=== PATIENT | male | born 1975 | race Caucasian/White ===

== ENCOUNTER 2023-09-18 12:24 | Emergency (ER) | payer MEDICARE, MEDICAID ==
[2023-09-18 12:45] VITALS: BP 149/100; O2SAT 98
--- NOTE | 2023-09-18 13:07 | ED Physician Documentation ---
History of Present Illness - Stated complaint Stated Complaint: FIT - Chief complaint Chief Complaint: General - History obtained from History obtained from: Patient - History of Present Illness Timing: Prior to arrival Quality: Patient arrested by [place] for reported aggressive assaultive behavior and seemed intoxicated. Pt requested coming to ED but would not specify why. Here for evaluation at pt request. Officers state they did not have suspicion of injury nor problem. Associated symptoms: Patient staes his wrists are sore with the handcuffs when he moves hands around. Denies other problems. When asked what he need medical attention for, he said that he wished me to get him out of being arrested. No specific medical complaint. Review of Systems Cardiac: denies: Chest pain / pressure Respiratory: denies: Dyspnea GI: denies: Abdominal Pain Neurologic: denies: Headache, Head injury PD PAST MEDICAL HISTORY - Past Medical History Cardiovascular: None Respiratory: None Endocrine/Autoimmune: None GI: Ulcers : Retention HEENT: None Psych: Anxiety Musculoskeletal: None Derm: None - Past Surgical History Past Surgical History: Yes Ortho: Knee replacement - Present Medications Home Medications: Ambulatory Orders Medication Instructions Recorded Confirmed Home Medications Unobtainable 09/18/23 09/18/23 [HOME MEDICATIONS UNOBTAINABLE] - Allergies Allergies/Adverse Reactions: Allergies Allergy/AdvReac Type Severity Reaction Status Date / Time No Known Drug Allergies Allergy Verified 09/18/23 12:26 - Social History Does the pt smoke?: No Smoking Status: Never smoker Does the pt drink ETOH?: No Does the pt have substance abuse?: No - Immunizations Immunizations are current?: No Immunizations: TDAP >10years/unknown - POLST Patient has POLST: No PD ED PE NORMAL - Vitals Vital signs reviewed: Yes - General General: Other (odor of alcohol on breath He does have some emotional lability that could be consistent with intoxication. He yells at times when I tell him it is not in my purview to intercede in his arrest or not. I can assess for medical conditions and if present, determine if hospital is needed rather than [facility]) - HEENT HEENT: Atraumatic - Neck Neck: Supple, no meningeal sign, No bony TTP, No adenopathy - Cardiac Cardiac: No murmur. No: RRR (regular but mildly tachycardic. ) - Respiratory Respiratory: No respiratory distress, Clear bilaterally - Derm Derm: Normal color, Warm and dry - Extremities Extremities: Other (wrists are cuffed but no redness nor abrasions noted and they seem to have room for movement of the wrists, so not appearing too tight. Color and cap refill, sesnation are normal in fingers. ) - Neuro Neuro: Alert and oriented X 3, No motor deficit, No sensory deficit, Normal speech Results - Vitals Vitals: Oxygen O2 Source Room air PD Medical Decision Making - ED course Complexity details: considered differential (he states he does not have medical complaint other than wrists hurting with the cuffs as he moves arms around. Otherwise his goal is asking me to get him out of being arrested. ), d/w patient Departure - Departure Disposition: 01 Home, Self Care Clinical Impression: Anxiety, Alcohol intoxication Condition: Stable Record reviewed to determine appropriate education?: Yes Forms: PCP List Discharge Date/Time: 09/18/23 13:28
== END 2023-09-18 13:28 | disposition home or self-care (01) ==
LOC: ED 12:24
DX: F41.9 Anxiety disorder, unspecified (principal); F10.929 Alcohol use, unspecified with intoxication, unspecified
CPT/HCPCS: 99281; 99283

== ENCOUNTER 2023-10-27 07:05 | Outpatient (CLI) | payer MEDICARE, MEDICAID | END 2023-10-27 07:06 | disposition critical access hospital (66) | LOC: EMS 07:05 | DX: S01.112A Laceration without foreign body of left eyelid and periocular area, initial encounter (principal); X58.XXXA Exposure to other specified factors, initial encounter; R41.0 Disorientation, unspecified; R45.1 Restlessness and agitation | CPT/HCPCS: A0425; A0429 ==

== ENCOUNTER 2023-10-27 07:21 | Emergency (ER) | payer MEDICARE, MEDICAID ==
--- NOTE | 2023-10-27 07:28 | ED Physician Documentation ---
History of Present Illness - Stated complaint Stated Complaint: FACIAL LAC/INJ - History obtained from History obtained from: Patient, EMS - Additonal information Additional information: 48-year-old gentleman presents by ambulance for head injury with possibly altered mental status. The mechanism of injury is unknown. He was found next to the couch with significant blood on the ground with evidence of left facial trauma. Patient does not recall falling or know why he fell. He is somewhat altered and acting strange. He denies any intoxicants. PD PAST MEDICAL HISTORY - Present Medications Home Medications: Ambulatory Orders Medication Instructions Recorded Confirmed Ibuprofen 200 mg PO DAILY 10/27/23 10/27/23 - Allergies Allergies/Adverse Reactions: Allergies Allergy/AdvReac Type Severity Reaction Status Date / Time No Known Drug Allergies Allergy Unverified 10/27/23 07:31 PD ED PE NORMAL - Vitals Vital signs reviewed: Yes - General General: Other (He is alert and oriented to person and place but not time or events) - HEENT HEENT: PERRL, EOMI (Without obvious nystagmus), Other (Dried blood left forehead and hematoma left infraorbital area. No evidence of entrapment. There is a 1 cm shallow laceration of the left upper eyelid) - Neck Neck: Supple, no meningeal sign, No bony TTP (But will CT given altered mental status and unknown mechanism of injury) - Cardiac Cardiac: RRR, No murmur - Respiratory Respiratory: No respiratory distress, Clear bilaterally - Abdomen Abdomen: Non tender - Neuro Neuro: primer inspector 2-12 intact Eye Opening: Spontaneous Motor: Obeys Commands Verbal: Confused GCS Score: 14 - Psych Psych: Normal mood, Normal affect Results - Vitals Vitals: Vital Signs - 24 hr 10/27/23 10/27/23 10/27/23 07:28 08:02 08:30 Temperature 36.6 C Heart Rate 115 H 94 97 Respiratory 18 19 19 Rate Blood Pressure 153/105 H 152/97 H 156/92 H O2 Saturation 99 100 98 10/27/23 09:00 Temperature Heart Rate 99 Respiratory 16 Rate Blood Pressure 158/90 H O2 Saturation 97 Oxygen O2 Source Room air - Labs Labs: Laboratory Tests 10/27/23 10/27/23 10/27/23 07:25 07:25 07:25 WBC 8.6 RBC 4.44 L Hgb 13.6 L Hct 40.9 L MCV 92.1 MCH 30.6 MCHC 33.3 RDW 15.4 H Plt Count 242 MPV 10.7 Neut # (Auto) 5.5 Lymph # (Auto) 2.1 [place] # (Auto) 0.9 Eos # (Auto) 0.0 Baso # (Auto) 0.1 Absolute Nucleated RBC 0.00 Nucleated RBC % 0.0 PT 12.6 INR 1.2 Sodium 136 Potassium 3.7 Chloride 98 L Carbon Dioxide 27 Anion Gap 11.0 BUN 15 Creatinine 1.0 Estimated GFR (MDRD) 79 L Glucose 137 H Calcium 9.7 Total Bilirubin 1.1 H AST 29 ALT 20 Alkaline Phosphatase 85 Total Protein 7.5 Albumin 4.7 Globulin 2.8 Albumin/Globulin Ratio 1.7 Lipase 56 Urine Color Urine Clarity Urine pH Ur Specific [place] Urine Protein Urine Glucose (UA) Urine Ketones Urine Occult Blood Urine Nitrite Urine Bilirubin Urine Urobilinogen Ur Leukocyte Esterase Ur Microscopic Review Urine Culture Comments Urine Opiates Screen Ur Buprenorphine Scrn Ur Oxycodone Screen Urine Methadone Screen Ur Barbiturates Screen Ur Tricyclics Screen Ur Phencyclidine Scrn Ur Amphetamine Screen U Methamphetamines Scrn U Benzodiazepines Scrn Urine Cocaine Screen U Cannabinoids Screen Ur Drug Screen Comment Ethyl Alcohol < 10.0 10/27/23 08:13 WBC RBC Hgb Hct MCV MCH MCHC RDW Plt Count MPV Neut # (Auto) Lymph # (Auto) [place] # (Auto) Eos # (Auto) Baso # (Auto) Absolute Nucleated RBC Nucleated RBC % PT INR Sodium Potassium Chloride Carbon Dioxide Anion Gap BUN Creatinine Estimated GFR (MDRD) Glucose Calcium Total Bilirubin AST ALT Alkaline Phosphatase Total Protein Albumin Globulin Albumin/Globulin Ratio Lipase Urine Color DARK YELLOW Urine Clarity CLEAR Urine pH 7.0 Ur Specific [place] 1.020 Urine Protein TRACE Urine Glucose (UA) NEGATIVE Urine Ketones 15 H Urine Occult Blood NEGATIVE Urine Nitrite NEGATIVE Urine Bilirubin NEGATIVE Urine Urobilinogen 0.2 (NORMAL) Ur Leukocyte Esterase NEGATIVE Ur Microscopic Review NOT INDICATED Urine Culture Comments NOT INDICATED Urine Opiates Screen NEGATIVE Ur Buprenorphine Scrn NEGATIVE Ur Oxycodone Screen NEGATIVE Urine Methadone Screen NEGATIVE Ur Barbiturates Screen NEGATIVE Ur Tricyclics Screen NEGATIVE Ur Phencyclidine Scrn NEGATIVE Ur Amphetamine Screen NEGATIVE U Methamphetamines Scrn NEGATIVE U Benzodiazepines Scrn NEGATIVE Urine Cocaine Screen NEGATIVE U Cannabinoids Screen POSITIVE H Ur Drug Screen Comment CUTOFF CONC BELOW: Ethyl Alcohol - Rads (name of study) CT of the head face and C-spine notable for chronic ex-vacuo dilatation of left lateral ventricle without traumatic findings. Relevant Findings:: Final report received, EMP independent interpretation of test Procedures - Laceration (location) Left upper eyelid Length in cm: 1 Wound type: Linear, Superficial, Clean Wound preparation: Irrigated copiously NS Skin layer closure: Dermabond Other: Patient tolerated well, No complications, Neurovascular intact, Tetanus booster given PD Medical Decision Making - ED course Complexity details: reviewed results (CBC showing mild normocytic anemia, INR normal, CMP unremarkable. Urinalysis normal. Blood alcohol negative.) ED course: 48-year-old gentleman presents after an apparent fall with an unrecollected mechanism of injury. He does have facial injuries. He has a small eyelid laceration that was closed with Dermabond after irrigation and tetanus was updated. Subsequent to my initial evaluation the cause for his mild confusion was unclear but he requested "a big joint." I discussed with him that we do not have marijuana here. He then wanted to leave stating he was going to take the bus home and seem to know the bus route. I encouraged him to stay pending completion of radiology review of CT scans. On my "wet read" of his head CT there was an abnormality of the left ventricular system but that does not appear acute necessarily. He left the department but then came back of his own volition with verbal redirection. He was reevaluated that time, and his examination was unchanged. Subsequently he stated to the nurse that he does not want to live alone anymore. He denies SI or HI but we will ask social work to see him. Social work saw him extensively and attempts were made for respite, but patient got tired of the weight and will continue his search for respite care at home. Departure - Departure Disposition: 01 Home, Self Care Clinical Impression: Facial laceration Qualifiers: Encounter type: initial encounter Qualified Code(s): S01.81XA - Laceration without foreign body of other part of head, initial encounter Facial contusion Qualifiers: Encounter type: initial encounter Qualified Code(s): S00.83XA - Contusion of other part of head, initial encounter Condition: Stable Instructions: ED Laceration Facial Skin Glue Comments: Call your doctor to arrange a follow-up appointment, make the next available appointment. In the interim, return anytime if worse or if new symptoms develop.
[2023-10-27 07:39] LABS: INR 1.2 (0.8-1.2); PT - PROTHROMBIN TIME 12.6 secs (9.9-12.6)
[2023-10-27] MEDS: LIDOCAINE 1%-EPI 1:100000 20 ML MDV SUBQ STA (07:45)
[2023-10-27] MEDS: TETANUS/DIPHTHERIA/PERTUSSIS 0.5 ML SYRINGE IM ONE (07:46)
[2023-10-27 07:47] LABS: ALBUMIN 4.7 g/dL (3.2-5.5); ALBUMIN/GLOBULIN RATIO 1.7 (1.0-2.2); ALKALINE PHOSPHATASE 85 IU/L (42-121); ALT ALANINE AMINOTRANSFERASE 20 IU/L (10-60); AST ASPARTATE AMINOTRANSFERASE 29 IU/L (10-42); BASOPHILS # (AUTO) 0.1 10^3/uL (0.0-0.1); BASOPHILS % (AUTO) 0.7 %; BILIRUBIN,TOTAL 1.1 mg/dL (0.2-1.0); BUN - BLOOD UREA NITROGEN 15 mg/dL (6-20); CALCIUM 9.7 mg/dL (8.5-10.3); CARBON DIOXIDE - CO2 27 mmol/L (21-32); CHLORIDE 98 mmol/L (101-111); EOSINOPHILS % (AUTO) 0.5 %; ETOH - ETHANOL < 10.0 mg/dL; GFR - MDRD 79 (>89); GLUCOSE 137 mg/dL (74-104); HCT - HEMATOCRIT 40.9 % (42.0-52.0); HGB - HEMOGLOBIN 13.6 g/dL (14.0-18.0); LIPASE 56 U/L (11-82); LYMPHOCYTES # (AUTO) 2.1 10^3/uL (1.5-3.5); LYMPHOCYTES % (AUTO) 24.2 %; MEAN CORPUSCULAR HEMOGLOBIN 30.6 pg (27.0-31.0); MEAN CORPUSCULAR HGB CONC 33.3 g/dL (32.0-36.0); MEAN CORPUSCULAR VOLUME 92.1 fL (80.0-94.0); MEAN PLATELET VOLUME 10.7 fL (7.4-11.4); MONOCYTES # (AUTO) 0.9 10^3/uL (0.0-1.0); MONOCYTES % (AUTO) 10.5 %; NEUTROPHILS # (AUTO) 5.5 10^3/uL (1.5-6.6); NEUTROPHILS % (AUTO) 63.9 %; PLT - PLATELET COUNT 242 10^3/uL (130-450); POTASSIUM 3.7 mmol/L (3.5-4.5); RED BLOOD COUNT 4.44 10^6/uL (4.70-6.10); RED CELL DISTRIBUTION WIDTH 15.4 % (12.0-15.0); SODIUM 136 mmol/L (135-145); TOTAL PROTEIN 7.5 g/dL (6.4-8.9); WHITE BLOOD COUNT 8.6 x10^3/uL (4.8-10.8)
[2023-10-27 08:22] LABS: BILIRUBIN,URINE NEGATIVE (NEGATIVE); GLUCOSE, URINE (UA) NEGATIVE (NEGATIVE); KETONES,URINE (UA) 15 mg/dL (NEGATIVE); LEUKOCYTE ESTERASE, URINE NEGATIVE (NEGATIVE); NITRITE,URINE NEGATIVE (NEGATIVE); OCCULT BLOOD,URINE NEGATIVE (NEGATIVE); PROTEIN,URINE TRACE mg/dL (NEGATIVE); UROBILINOGEN,URINE 0.2 (NORMAL) E.U./dL (NORMAL)
[2023-10-27 08:23] LABS: CLARITY,URINE CLEAR (CLEAR)
[2023-10-27 08:33] LABS: AMPHETAMINE SCREEN,URINE NEGATIVE (NEGATIVE); BARBITURATE SCREEN,UR NEGATIVE (NEGATIVE); BENZODIAZEPINES SCREEN, URINE NEGATIVE (NEGATIVE); BUPRENORPHINE SCREEN, URINE NEGATIVE (NEGATIVE); COCAINE SCREEN URINE NEGATIVE (NEGATIVE); METHADONE SCREEN, URINE NEGATIVE (NEGATIVE); METHAMPHETAMINES SCREEN, URINE NEGATIVE (NEGATIVE); OPIATE SCREEN, URINE NEGATIVE (NEGATIVE); OXYCODONE SCREEN, URINE NEGATIVE (NEGATIVE); THC CANNABINOID SCREEN, URINE POSITIVE (NEGATIVE); TRICYCLIC ANTIDEPRESSANT,URINE NEGATIVE (NEGATIVE)
[2023-10-27] MEDS: LORazepam 1 MG TABLET PO STA (09:09)
--- NOTE | 2023-10-27 09:37 | CT Report ---
PROCEDURE: Head WO INDICATIONS: Head trauma, mod-severe TECHNIQUE: Noncontrast 4.5 mm thick angled axial sections acquired from the foramen magnum to the vertex. For r adiation dose reduction, the following was used: automated exposure control, adjustment of mA and/or kV according to patient size. COMPARISON: Report from CT head dated 04/18/2009. Previous images are not available for comparison.. FINDINGS: Image quality: Excellent. CSF spaces: Basal cisterns are patent. No extra-axial fluid collections. There is abnormal distenti on of the left lateral ventricle, previously described as well, likely representing a saccular dilata tion. There is no midline shift. Brain: No midline shift. No intracranial masses or hemorrhage. Garcia-white matter interface is norm al. Skull and face: Calvarium and visualized facial bones are intact, without suspicious lesions. Sinuses: Visualized sinuses and mastoids are clear. IMPRESSION: 1. Dilatation of the left lateral ventricle is a chronic finding, described on the report from 14 yea rs ago. This is likely ex vacuo dilatation. 2. No acute intracranial process. Reviewed by: Inocente Weinberg MD on 10/27/2023 9:36 AM PDT Approved by: Inocente Weinberg MD on 10/27/2023 9:36 AM PDT Station ID: [id number]
--- NOTE | 2023-10-27 09:38 | CT Report ---
PROCEDURE: Cervical Spine WO INDICATIONS: ams head inj TECHNIQUE: Noncontrast 3 mm thick sections acquired from the skull base to the T4 level. Sagittal and coronal r eformats were then constructed. For radiation dose reduction, the following was used: automated exp osure control, adjustment of mA and/or kV according to patient size. COMPARISON: None. FINDINGS: Image quality: Excellent. Bones: No fractures or dislocations. Visualized superior ribs are intact. Soft tissues: Prevertebral soft tissues are normal in thickness. No paravertebral hematomas. No ap ical pneumothoraces. IMPRESSION: 1. No acute cervical fracture or dislocation. Reviewed by: Inocente Weinberg MD on 10/27/2023 9:37 AM PDT Approved by: Inocente Weinberg MD on 10/27/2023 9:37 AM PDT Station ID: [id number]
--- NOTE | 2023-10-27 09:40 | CT Report ---
PROCEDURE: Maxillofacial WO INDICATIONS: Facial trauma TECHNIQUE: Noncontrast 1.5 mm thick axial images acquired from the mandible through the frontal sinuses, with co ted and sagittal reformatting. For radiation dose reduction, the following was used: automated ex posure control, adjustment of mA and/or kV according to patient size. COMPARISON: None. FINDINGS: Image quality: Excellent. Bones and teeth: Orbital monique are intact. Sinus monique show no fracture or deformity. Nasal bones and septum are intact. Visualized portions of the mandible demonstrate no fractures or subluxation. Zygomatic arches are intact. Pterygoid plates are intact. Visualized portions of the skull base an d auditory canals are intact. Sinuses: Paranasal sinuses are aerated, without fluid levels, mucosal thickening, or mucoceles. Mas toid air cells are aerated. Soft tissues: Mild hematoma, left cheek. No enlarged lymph nodes. No soft tissue lacerations or debr is. Vascular: Visualized vascular structures appear normal in the absence of contrast. Bony vascular fo ramina and canals are intact. IMPRESSION: 1. Mild left cheek hematoma. 2. No displaced facial bone fracture or mandibular fracture. Reviewed by: Inocente Weinberg MD on 10/27/2023 9:39 AM PDT Approved by: Inocente Weinberg MD on 10/27/2023 9:39 AM PDT Station ID: [id number]
[2023-10-27 14:33] VITALS: BP 126/107; O2SAT 99
== END 2023-10-27 14:25 | disposition home or self-care (01) ==
LOC: EDUNIT# → ED 07:21
DX: S01.112A Laceration without foreign body of left eyelid and periocular area, initial encounter (principal); X58.XXXA Exposure to other specified factors, initial encounter; Z23 Encounter for immunization; Z79.899 Other long term (current) drug therapy
CPT/HCPCS: 12011; 36415; 70450; 70486; 72125; 80053; 80306; 81003; 83690; 85025; 85610; 90471; 90715; 99283; 99284; G0480; J8499; 81001; 82077; 87086

== ENCOUNTER 2023-10-29 12:51 | Outpatient (CLI) | payer MEDICARE, MEDICAID | END 2023-10-29 23:59 | disposition EMS.NT | LOC: EMS 12:51 | DX: S09.90XD Unspecified injury of head, subsequent encounter (principal); W19.XXXD Unspecified fall, subsequent encounter ==

== ENCOUNTER 2023-10-29 18:40 | Outpatient (CLI) | payer MEDICARE, MEDICAID | END 2023-10-29 23:59 | disposition critical access hospital (66) | LOC: EMS 18:40 | DX: R07.89 Other chest pain (principal); F41.9 Anxiety disorder, unspecified | CPT/HCPCS: A0425; A0429 ==

== ENCOUNTER 2023-10-29 18:58 | Emergency (ER) | payer MEDICARE, MEDICAID ==
--- NOTE | 2023-10-29 19:38 | ED Physician Documentation ---
History of Present Illness - Stated complaint Stated Complaint: CHEST DISCOMFORT - Chief complaint Chief Complaint: Cardiac - Additonal information Additional information: Patient is a 48-year-old male presenting to the emergency department with symptoms of chest discomfort that he reported to EMS however on arrival patient is declining any chest discomfort right now. Patient has bruise to the left eye but it appears old. There is concerning findings as patient is ANO x 2 not willing to answer questions. Patient has flight of thoughts. He is requesting only food and water here in the emergency department. He declines any symptoms at this time and is requesting to go home.Review of history shows that patient has history of anxiety as well as history of alcohol abuse.Patient was seen here 10/26 for symptoms of a fall and injury to his face. Patient had CT head neck and facial bones scanned at that time and had no acute fractures other than hematoma. PD PAST MEDICAL HISTORY - Past Medical History Past Medical History: Yes Cardiovascular: None Respiratory: None Endocrine/Autoimmune: None GI: Ulcers : Retention HEENT: None Psych: Anxiety Musculoskeletal: None Derm: None - Past Surgical History Past Surgical History: Yes Ortho: Knee replacement - Present Medications Home Medications: Ambulatory Orders Medication Instructions Recorded Confirmed No Known Home Medications 10/29/23 10/29/23 - Allergies Allergies/Adverse Reactions: Allergies Allergy/AdvReac Type Severity Reaction Status Date / Time No Known Drug Allergies Allergy Verified 10/29/23 19:02 - Social History Does the pt smoke?: No Smoking Status: Never smoker Does the pt drink ETOH?: No Does the pt have substance abuse?: No - Immunizations Immunizations are current?: No Immunizations: TDAP >10years/unknown - POLST Patient has POLST: No PD ED PE NORMAL - Vitals Vital signs reviewed: Yes - General General: Other (Patient only requesting food, refusing to answer any questions) - HEENT HEENT: Other (Old bruising noted over left latter day) - Cardiac Cardiac: RRR, No murmur, No gallop, No rub - Respiratory Respiratory: No respiratory distress, Clear bilaterally - Abdomen Abdomen: Normal bowel sounds - Derm Derm: Normal color, No rash - Extremities Extremities: No deformity - Psych Psych: Other (Patient irritable but able to follow commands and appears to have normal judgment here in the ED) Results - Vitals Vitals: Vital Signs - 24 hr 10/29/23 10/29/23 19:02 19:59 Temperature 37.0 C Heart Rate 98 78 Respiratory 18 13 Rate Blood Pressure 134/88 H 130/94 H O2 Saturation 100 99 Oxygen O2 Source Room air - Labs Labs: Laboratory Tests 10/29/23 10/29/23 10/29/23 19:28 19:59 19:59 WBC 7.1 RBC 3.95 L Hgb 12.5 L Hct 37.0 L MCV 93.7 MCH 31.6 H MCHC 33.8 RDW 14.9 Plt Count 196 MPV 10.8 Neut # (Auto) 4.0 Lymph # (Auto) 2.1 [place] # (Auto) 0.7 Eos # (Auto) 0.2 Baso # (Auto) 0.1 Absolute Nucleated RBC 0.00 Nucleated RBC % 0.0 Sodium 137 Potassium 3.7 Chloride 102 Carbon Dioxide 26 Anion Gap 9.0 BUN 15 Creatinine 0.9 Estimated GFR (MDRD) 90 Glucose 86 Calcium 8.8 Total Bilirubin 1.0 AST 111 H ALT 37 Alkaline Phosphatase 88 Troponin I High Sens 5.9 Total Protein 7.1 Albumin 4.2 Globulin 2.9 Albumin/Globulin Ratio 1.4 Lipase 60 Urine Opiates Screen NEGATIVE Ur Buprenorphine Scrn NEGATIVE Ur Oxycodone Screen NEGATIVE Urine Methadone Screen NEGATIVE Ur Barbiturates Screen NEGATIVE Ur Tricyclics Screen NEGATIVE Ur Phencyclidine Scrn NEGATIVE Ur Amphetamine Screen NEGATIVE U Methamphetamines Scrn NEGATIVE U Benzodiazepines Scrn NEGATIVE Urine Cocaine Screen NEGATIVE U Cannabinoids Screen POSITIVE H Ur Drug Screen Comment CUTOFF CONC BELOW: Ethyl Alcohol < 10.0 PD Medical Decision Making - ED course Complexity details: reviewed old records, reviewed results ED course: Patient is a 48-year-old male presenting to the emergency department by EMS after reporting chest discomfort to EMS. Patient denies any trauma he has no answer majority of questions becoming irritable on examination. Normal cardiac sounds on auscultation of the lungs is stable. Patient requesting food. He appears irritable but when given food he is able to answer questions and in no acute distress on reevaluation. Labs here in the emergency department showed negative alcohol level negative urine drug screen. He reports a history of schizophrenia. And would like further treatment at this time. Patient denies any suicidal or homicidal ideations. Patient has bruising to left side of his face but this appears old bruising and most likely from his injury on the when he was seen here in the emergency department had negative head scan facial bones and neck scan. Discussed with patient we will attempt finding further treatment here in the emergency department with telepsych. Patient agreeable at this time. Labs show no signs of ACS EKG no signs of ST depression or elevation. Troponin is within normal range and chest x-ray shows no acute cardiopulmonary process. 2109: Patient got up from his bed in the hospital and IV was removed by himself. He attempted to walk at the front doors but was unable to turn around and walk to the ambulance doors. I was unable to talk with patient prior to him leaving. Patient on previous evaluation was ANO x 3 able to walk and had no signs of intoxication or altered mental status on reevaluation prior to telepsych being consulted. Patient left prior to disposition being given. Departure - Departure Disposition: Left Prior to Disposition Clinical Impression: Chest discomfort, Schizophrenia, acute Condition: Fair Instructions: ED Schizophrenia General Forms: PCP List
[2023-10-29] MEDS: hydrOXYzine PAMOATE 25 MG CAPSULE PO STA (19:45)
[2023-10-29 20:10] VITALS: BP 130/94; O2SAT 99
[2023-10-29 20:11] LABS: BASOPHILS # (AUTO) 0.1 10^3/uL (0.0-0.1); EOSINOPHILS # (AUTO) 0.2 10^3/uL (0.0-0.7); EOSINOPHILS % (AUTO) 2.3 %; HGB - HEMOGLOBIN 12.5 g/dL (14.0-18.0); LYMPHOCYTES # (AUTO) 2.1 10^3/uL (1.5-3.5); LYMPHOCYTES % (AUTO) 30.2 %; MEAN CORPUSCULAR HEMOGLOBIN 31.6 pg (27.0-31.0); MEAN CORPUSCULAR HGB CONC 33.8 g/dL (32.0-36.0); MEAN CORPUSCULAR VOLUME 93.7 fL (80.0-94.0); MEAN PLATELET VOLUME 10.8 fL (7.4-11.4); MONOCYTES # (AUTO) 0.7 10^3/uL (0.0-1.0); MONOCYTES % (AUTO) 9.4 %; PLT - PLATELET COUNT 196 10^3/uL (130-450); RED BLOOD COUNT 3.95 10^6/uL (4.70-6.10); RED CELL DISTRIBUTION WIDTH 14.9 % (12.0-15.0); WHITE BLOOD COUNT 7.1 x10^3/uL (4.8-10.8)
[2023-10-29 20:25] LABS: AMPHETAMINE SCREEN,URINE NEGATIVE (NEGATIVE); BARBITURATE SCREEN,UR NEGATIVE (NEGATIVE); BENZODIAZEPINES SCREEN, URINE NEGATIVE (NEGATIVE); BUPRENORPHINE SCREEN, URINE NEGATIVE (NEGATIVE); COCAINE SCREEN URINE NEGATIVE (NEGATIVE); METHADONE SCREEN, URINE NEGATIVE (NEGATIVE); METHAMPHETAMINES SCREEN, URINE NEGATIVE (NEGATIVE); OPIATE SCREEN, URINE NEGATIVE (NEGATIVE); OXYCODONE SCREEN, URINE NEGATIVE (NEGATIVE); THC CANNABINOID SCREEN, URINE POSITIVE (NEGATIVE); TRICYCLIC ANTIDEPRESSANT,URINE NEGATIVE (NEGATIVE)
[2023-10-29 20:31] LABS: ALBUMIN 4.2 g/dL (3.2-5.5); ALBUMIN/GLOBULIN RATIO 1.4 (1.0-2.2); ALKALINE PHOSPHATASE 88 IU/L (42-121); ALT ALANINE AMINOTRANSFERASE 37 IU/L (10-60); AST ASPARTATE AMINOTRANSFERASE 111 IU/L (10-42); BUN - BLOOD UREA NITROGEN 15 mg/dL (6-20); CALCIUM 8.8 mg/dL (8.5-10.3); CARBON DIOXIDE - CO2 26 mmol/L (21-32); CHLORIDE 102 mmol/L (101-111); CREATININE 0.9 mg/dL (0.6-1.3); ETOH - ETHANOL < 10.0 mg/dL; GFR - MDRD 90 (>89); GLUCOSE 86 mg/dL (74-104); LIPASE 60 U/L (11-82); POTASSIUM 3.7 mmol/L (3.5-4.5); SODIUM 137 mmol/L (135-145); TOTAL PROTEIN 7.1 g/dL (6.4-8.9); TROPONIN I HIGH SENSITIVITY 5.9 ng/L (2.3-19.7)
--- NOTE | 2023-10-29 20:58 | XRAY Report ---
PROCEDURE: Chest 1V INDICATIONS: chest pain TECHNIQUE: One view of the chest was acquired. COMPARISON: None. FINDINGS: Surgical changes and devices: None. Lungs and pleura: No pleural effusions or pneumothorax. Lungs are clear. Mediastinum: Mediastinal contours appear normal. Heart size is normal. Bones and chest wall: No suspicious bony lesions. Overlying soft tissues appear unremarkable. IMPRESSION: No acute cardiopulmonary process. Reviewed by: Dell Moreno MD on 10/29/2023 8:57 PM PDT Approved by: Dell Moreno MD on 10/29/2023 8:57 PM PDT Station ID: [id number]
[2023-10-29 21:17] LABS: ACETAMINOPHEN 0.1 ug/mL
[2023-10-29 21:19] LABS: SALICYLATE < 1.5 mg/dL
== END 2023-10-29 21:24 | disposition home or self-care (01) ==
LOC: EDUNIT# → EDBD → ED 18:58
DX: R07.89 Other chest pain (principal); F23 Brief psychotic disorder
CPT/HCPCS: 36415; 80053; 80143; 80179; 80306; 82077; 83690; 84484; 85025; 93005; 99283; 99284

== ENCOUNTER 2023-10-29 21:36 | Emergency (ER) | payer MEDICARE, MEDICAID ==
--- NOTE | 2023-10-29 21:52 | ED Physician Documentation ---
PD HPI MHE - Stated complaint Stated Complaint: MHE - Chief complaint Chief Complaint: MHE - History obtained from History obtained from: Patient - Additional information Additional information: 48-year-old gentleman with history of schizoaffective disorder seems to be decompensated. He has not been taking meds for quite some time, he does not recall the last time. This is his third visit in as many days to the emergency department with a lot of activity and he checks back in after leaving earlier with complaints of I need a sandwich and feeling restless. PD PAST MEDICAL HISTORY - Past Medical History Past Medical History: Yes Cardiovascular: None Respiratory: None Endocrine/Autoimmune: None GI: Ulcers : Retention HEENT: None Psych: Anxiety Musculoskeletal: None Derm: None - Past Surgical History Past Surgical History: Yes Ortho: Knee replacement - Present Medications Home Medications: Ambulatory Orders Medication Instructions Recorded Confirmed No Known Home Medications 10/29/23 10/29/23 - Allergies Allergies/Adverse Reactions: Allergies Allergy/AdvReac Type Severity Reaction Status Date / Time No Known Drug Allergies Allergy Verified 10/29/23 21:38 - Social History Does the pt smoke?: No Smoking Status: Never smoker Does the pt drink ETOH?: No Does the pt have substance abuse?: No - Immunizations Immunizations are current?: No Immunizations: TDAP >10years/unknown - POLST Patient has POLST: No PD ED PE NORMAL - Vitals Vital signs reviewed: Yes - General General: Alert and oriented X 3, Other (He is alert and oriented, but with flight of ideas and tangential speech. Hyperdynamic.) - HEENT HEENT: PERRL, EOMI - Neck Neck: Supple, no meningeal sign, No bony TTP - Cardiac Cardiac: RRR, No murmur - Respiratory Respiratory: No respiratory distress, Clear bilaterally - Abdomen Abdomen: Normal bowel sounds, Soft, Non tender - Back Back: No CVA TTP, No spinal TTP - Derm Derm: Normal color, Warm and dry - Extremities Extremities: No edema, No calf tenderness / cord - Neuro Neuro: Alert and oriented X 3, property clerk 2-12 intact, No motor deficit, No sensory deficit, Normal speech Eye Opening: Spontaneous Motor: Obeys Commands Verbal: Oriented GCS Score: 15 - Psych Psych: Normal mood, Normal affect Results - Vitals Vitals: Vital Signs - 24 hr 10/29/23 21:38 Temperature 36.8 C Heart Rate 100 Respiratory 16 Rate Blood Pressure 131/77 H O2 Saturation 98 Oxygen O2 Source Room air PD Medical Decision Making - ED course ED course: 48-year-old gentleman with decompensated schizoaffective disorder, he is agreeable to inpatient treatment and agreeable to taking oral meds in the interim. Zyprexa and Ativan was ordered and telepsychiatric consult placed. Care to overnight emergency physician at shift change pending telepsychiatry consult and placement. Departure - Departure Clinical Impression: Schizoaffective disorder Qualifiers: Schizoaffective disorder type: unspecified Qualified Code(s): F25.9 - Schizoaffective disorder, unspecified Condition: Stable
[2023-10-29] MEDS: LORazepam 1 MG TABLET PO STA (21:58)
[2023-10-29] MEDS: OLANZapine ODT 5 MG TABLET TL STA (21:58)
[2023-10-29 22:05] LABS: BASOPHILS # (AUTO) 0.1 10^3/uL (0.0-0.1); BASOPHILS % (AUTO) 0.8 %; EOSINOPHILS # (AUTO) 0.2 10^3/uL (0.0-0.7); EOSINOPHILS % (AUTO) 2.6 %; HCT - HEMATOCRIT 37.9 % (42.0-52.0); HGB - HEMOGLOBIN 12.8 g/dL (14.0-18.0); LYMPHOCYTES # (AUTO) 2.8 10^3/uL (1.5-3.5); LYMPHOCYTES % (AUTO) 35.8 %; MEAN CORPUSCULAR HEMOGLOBIN 31.6 pg (27.0-31.0); MEAN CORPUSCULAR HGB CONC 33.8 g/dL (32.0-36.0); MEAN CORPUSCULAR VOLUME 93.6 fL (80.0-94.0); MEAN PLATELET VOLUME 10.4 fL (7.4-11.4); MONOCYTES # (AUTO) 0.8 10^3/uL (0.0-1.0); MONOCYTES % (AUTO) 10.5 %; NEUTROPHILS # (AUTO) 3.9 10^3/uL (1.5-6.6); NEUTROPHILS % (AUTO) 50.3 %; PLT - PLATELET COUNT 208 10^3/uL (130-450); RED BLOOD COUNT 4.05 10^6/uL (4.70-6.10); RED CELL DISTRIBUTION WIDTH 14.9 % (12.0-15.0); WHITE BLOOD COUNT 7.8 x10^3/uL (4.8-10.8)
[2023-10-29 22:25] LABS: ALBUMIN 4.4 g/dL (3.2-5.5); ALBUMIN/GLOBULIN RATIO 1.5 (1.0-2.2); ALKALINE PHOSPHATASE 98 IU/L (42-121); ALT ALANINE AMINOTRANSFERASE 39 IU/L (10-60); AST ASPARTATE AMINOTRANSFERASE 114 IU/L (10-42); BILIRUBIN,TOTAL 0.8 mg/dL (0.2-1.0); BUN - BLOOD UREA NITROGEN 16 mg/dL (6-20); CALCIUM 9.2 mg/dL (8.5-10.3); CARBON DIOXIDE - CO2 29 mmol/L (21-32); CHLORIDE 102 mmol/L (101-111); CREATININE 0.9 mg/dL (0.6-1.3); ETOH - ETHANOL < 10.0 mg/dL; GFR - MDRD 90 (>89); GLUCOSE 105 mg/dL (74-104); LIPASE 76 U/L (11-82); MAGNESIUM 2.1 mg/dL (1.7-2.3); POTASSIUM 3.8 mmol/L (3.5-4.5); SODIUM 138 mmol/L (135-145); TOTAL PROTEIN 7.3 g/dL (6.4-8.9)
[2023-10-29 22:35] LABS: THYROID STIMULATING HORMONE 2.11 uIU/mL (0.34-5.60)
[2023-10-29 22:36] LABS: ACETAMINOPHEN < 0.1 ug/mL; SALICYLATE < 1.5 mg/dL
[2023-10-29 22:37] LABS: CK- CREATINE KINASE 3431 IU/L (30-223)
--- NOTE | 2023-10-29 23:31 | TELEPSYCH PHYS NOTE ---
[facility] Telepsych Consult Consult Date: 10/29/23 Name of Referring Provider:: Kelsie Reason for Consult: hx of schizoaffective disorder - Assessment Language: Greenlandic Re Recording Mixer Required: No Cultural, Mandaeism or Spiritual Preferences: none n - Medication & Allergies Home Medications: Ambulatory Orders Medication Instructions Recorded Confirmed No Known Home Medications 10/29/23 10/29/23 Allergies/Adverse Reactions: Allergies Allergy/AdvReac Type Severity Reaction Status Date / Time No Known Drug Allergies Allergy Verified 10/29/23 21:38 - Medical History Psychiatric: reports: Anxiety Eyes, Ears, Nose, Throat: reports: None Cardiovascular: reports: None Respiratory: reports: None Gastrointestinal: reports: Ulcers Urinary: reports: Retention Musculoskeletal: reports: None Skin: reports: None - Surgical History Orthopedic: reports: Knee replacement - Time Spent & Provider Location Telepsych consultation conducted via videoconferencing: Yes List names and roles of persons who participated in consult: Brian Lucero [facility] Provider Location: remote Time Spent (Minutes): 0 (This chart was started in error. This is why it is not completed. Please see other chart for detailed visit information. )
[2023-10-30] MEDS: SODIUM CHLORIDE 0.9% 1,000 ML IV STA (00:16)
--- NOTE | 2023-10-30 02:35 | ED Physician Documentation ---
ED Addendum - Addendum Addendum: 10/30/23 02:30 The patient was signed out to me at change of shift by Dr. Sung, with plan for the patient to voluntarily speak with telepsych. The patient has a history of schizoaffective disorder and has been to the emergency department multiple times in the last few days for various minor complaints but mostly, requesting food and a place to sleep. The patient just had a very full workup done within the last couple of days to assess him after he had apparently taken a fall. Workup was essentially negative and social work was consulted and did an extensive evaluation of the patient. However, the patient signed out AGAINST MEDICAL ADVICE on that day and left. The patient charlotte was potentially interested in voluntary inpatient services to get back on his medications for schizoaffective disorder, and was given Ativan and Zyprexa here in the emergency department. He was awaiting telepsych evaluation upon signout. However, when the telepsychiatrist did call a couple of hours later, the patient stated he did not wish to talk to her and turned over to go back to sleep. I did go and evaluate the patient who could not really tell me why he did not want to talk to the telepsychiatrist. He denied being suicidal or homicidal and did not appear to be hallucinating. The patient was calm and cooperative but stated that he did not feel the need to talk to anybody at this time. I did review the patient's labs and studies and found that the patient had a creatine kinase of over 3400. I was not clear exactly how acute this was, as this particular lab was not drawn the last 2 times he has been here. The patient did not seem to desire mental health intervention at this time, but I did feel he should be given a liter of fluid and have his current team kinase rechecked to be sure is not going up. He received a 1 L bolus of 0.9 normal saline and his repeat CK was 2500. I felt the patient was stable for discharge. Although affected by his schizoaffective disorder, he does not appear gravely disabled his and is not a danger to himself or others. We have discussed the need for follow-up and the usual indications for return. Final impression: 1. Schizoaffective disorder 2. Rhabdomyolysis Disposition: Discharged home in stable and improved condition. 10/30/23 02:35
[2023-10-30 02:43] VITALS: BP 116/68; O2SAT 100
== END 2023-10-30 02:37 | disposition home or self-care (01) ==
LOC: ED 21:36
DX: F25.9 Schizoaffective disorder, unspecified (principal); M62.82 Rhabdomyolysis; Z91.148 Patient's other noncompliance with medication regimen for other reason; R07.89 Other chest pain; F23 Brief psychotic disorder
CPT/HCPCS: 36415; 71045; 80053; 80143; 80306; 82550; 83690; 83735; 84443; 84484; 85025; 87635; 93005; 99283; 99284; A9270; G0425; G0480; J8499; Q3014; 80179; 81001; 81003; 82077; 87086